=== PATIENT | male | born 1995 | race Caucasian/White ===

== ENCOUNTER → 2020-05-25 14:12 | Outpatient (CLI) | payer BC, SELFPAY ==
--- NOTE | ~2020-05-25 | MR_ITS ---
EXAMINATION: MR shoulder RT w con DATE: 05/25/2020 16:14 INDICATION: Right shoulder pain and weakness TECHNIQUE: Magnetic resonance imaging (MRI) of the right shoulder was performed following intra-marlin cular gadolinium contrast injection and without intravenous contrast. Details of the glenohumeral zakiya nt injection have been dictated separately. Sequences included axial T2-weighted FS FSE, axial T1-we ighted FS FSE, coronal oblique T1-weighted FS FSE, coronal oblique T2-weighted FSE, sagittal T2-weigh wilmer FS FSE, sagittal T1-weighted FSE, and ABER (abduction external rotation) T1-weighted FS FSE. COMPARISON: None. FINDINGS: Coracoacromial arch: The acromion undersurface is curved in morphology (type II). The coracoacromial ligament is normal. A cromioclavicular joint is normal. Bones and other: Small chronic Hill-Sachs fracture trough without underlying subarticular edema at the posterior super ior aspect of the humeral head. Marrow signal is normal with no reactive edema or pathologic marrow r eplacing process. There is approximately 12 degrees retroversion of the glenoid. Small amount of flui d in the subacromial/subdeltoid bursa consistent with mild bursitis. Rotator cuff: Mild infraspinatus tendinopathy with shallow fraying along the articular side of the tendon immediate ly adjacent to the Hill-Sachs fracture trough. The subscapularis, supraspinatus and teres minor tendo ns are normal. Normal rotator cuff muscle bulk and signal. Biceps tendon, glenoid labrum and glenohumeral cartilage: Long head of the biceps tendon is normal. There is a 2 mm deep contrast filled cleft at the base of t he 11:30-12:30 position of the superior glenoid labrum. This could represent a normal labral sulcus h owever on the coronal sequences series 6, image 10 the left appears slightly more peripheral than the chondral labral junction and with the sulcus appearing directed slightly peripherally rather than me dially raising suspicion for a SLAP tear. Remainder of the glenoid labrum is normal. Articular cartil age is normal. IMPRESSION: 1. Small Hill-Sachs fracture trough without underlying edema likely sequela of chronic anterior dislo cation injury. No corresponding Bankart injury. 2. Shallow cleft at the base of the superior glenoid labrum suspicious but not definitive for SLAP te ar with differential including normal labral sulcus. 3. Mild tendinopathy and shallow articular sided fraying at the distal infraspinatus tendon in relati vely close proximity to and potentially related to the Hill-Sachs fracture trough. Reviewed, dictated and finalized at location B. IMPRESSION: 1. Small Hill-Sachs fracture trough without underlying edema likely sequela of chronic anterior dislocation injury. No corresponding Bankart injury. 2. Shallow cleft at the base of the superior glenoid labrum suspicious but not definitive for SLAP tear with differential including normal labral sulcus. 3. Mild tendinopathy and shallow articular sided fraying at the distal infraspi natus tendon in relatively close proximity to and potentially related to the Hi ll-Sachs fracture trough.
--- NOTE | ~2020-05-25 | XR_ITS ---
EXAMINATION: XR fl inj shoulder RT - MR/CT DATE: 05/25/2020 15:45 INDICATION: Right shoulder pain and weakness TECHNIQUE: A time-out was performed to verify the patient's name, date of , and procedure to b e performed. The procedure including the risks, benefits, and alternatives was discussed with the pat ient. Risks discussed included bleeding and infection. The patient understood the risks and agreed to proceed. The skin overlying the rotator cuff interval of the right glenohumeral joint was prepped a nd draped in usual sterile fashion. Anesthetic was administered with 1% lidocaine subcutaneously. A 22 G needle was advanced under fluoroscopic guidance into the joint. Injection of 0.4 mL of Omnipaq ue 240 confirmed intra-articular position of the needle. Subsequently, injectate consisting of 12 mL of 2:1:1 mixture of sterile saline:Omnipaque 240:1% lidocaine mixed 200:1 with 529 mg/mL Multihance gadolinium contrast was injected. Washout of contrast was seen confirming intra-articular administrat ion. The needle was removed and the entry site was cleaned and dressed. There were no immediate comp lications. Fluoroscopy exposure time was 0.1 minutes. The total number of images was 85. FINDINGS: Real-time fluoroscopy demonstrates the needle in the right glenohumeral joint. Evident on t he cine images obtained with the arm in internal and external rotation is a Hill-Sachs fracture troug h at the posterolateral right humeral head. IMPRESSION: 1. Successful right glenohumeral joint injection of a dilute gadolinium contrast mixture for subseque nt MRI arthrogram which will be dictated separately. 2. Hill-Sachs fracture deformity at the posterolateral humeral head suggesting prior anterior disloca tion injury. Reviewed, dictated and finalized at location B. IMPRESSION: 1. Successful right glenohumeral joint injection of a dilute gadolinium contras t mixture for subsequent MRI arthrogram which will be dictated separately. 2. Hill-Sachs fracture deformity at the posterolateral humeral head suggesting prior anterior dislocation injury.
== END ==
PROVIDERS: PCP Family Medicine; Visit Provider Orthopaedic Surgery
DX: M25.511 Pain in right shoulder (principal); S42.291A Other displaced fracture of upper end of right humerus, initial encounter for closed fracture; M75.81 Other shoulder lesions, right shoulder
CPT/HCPCS: 23350; 73222; 77002; A9577; Q9966

== ENCOUNTER → 2020-11-14 06:46 | Outpatient (CLI) | payer BC, SELFPAY ==
[2020-11-15 01:17] LABS: SARS-CoV-2 RNA PCR Negative
== END ==
PROVIDERS: Physician Assistant; PCP Family Medicine; Visit Provider Family Medicine
DX: Z20.822 Contact with and (suspected) exposure to COVID-19 (principal); R09.89 Other specified symptoms and signs involving the circulatory and respiratory systems
CPT/HCPCS: C9803; U0003; U0005

== ENCOUNTER → 2021-02-03 14:31 | Outpatient (CLI) | payer BC, SELFPAY ==
--- NOTE | ~2021-02-03 | XR_ITS ---
XR lumbar spine 2-3V DATE: 02/03/2021 15:01 INDICATION: Back pain TECHNIQUE: Standing AP, lateral, coned lateral lumbosacral views COMPARISON: None FINDINGS: There is minimal levoscoliosis of the lumbar spine. No fracture or bone destruction or spondylolisthesis. The lumbar pedicles are intact. The lumbar and lumbosacral interspaces are well preserved. The sacroiliac joints appear normal. IMPRESSION: Mild levoscoliosis Reviewed, dictated and finalized at location A. IMPRESSION: Mild levoscoliosis
--- NOTE | ~2021-02-03 | XR_ITS ---
XR thoracic spine 2V DATE: 02/03/2021 15:01 INDICATION: Back pain TECHNIQUE: AP and lateral and swimmer's standing views COMPARISON: None FINDINGS: Mild dextroscoliosis of the mid and lower thoracic spine. No fracture or dislocation or bone destruction. The thoracic pedicles are intact. No paraspinal soft tissue thickening. Incidentally noted is an azygos lobe. IMPRESSION: Mild scoliosis Reviewed, dictated and finalized at location A. IMPRESSION: Mild scoliosis
== END ==
PROVIDERS: PCP Family Medicine; Visit Provider Physician Assistant
DX: M54.9 Dorsalgia, unspecified (principal); M41.9 Scoliosis, unspecified
CPT/HCPCS: 72070; 72100

== ENCOUNTER → 2021-12-21 11:54 | Outpatient (CLI) | payer BC, SELFPAY ==
--- NOTE | ~2021-12-21 | MR_ITS ---
EXAMINATION: XR fl inj shoulder RT - MR/CT DATE: 12/21/2021 12:43 INDICATION: Right shoulder instability TECHNIQUE: Magnetic resonance imaging (MRI) of the right shoulder was performed following intra-marlin cular gadolinium contrast injection and without intravenous contrast. Details of the glenohumeral zakiya nt injection have been dictated separately. Sequences included axial T2-weighted FS FSE, axial T1-we ighted FS FSE, coronal oblique T1-weighted FS FSE, coronal oblique T2-weighted FSE, sagittal T2-weigh wilmer FS FSE, sagittal T1-weighted FSE, and ABER (abduction external rotation) T1-weighted FS FSE. COMPARISON: 05/25/2020 FINDINGS: Coracoacromial arch: The acromion undersurface is curved in morphology (type II). The coracoacromial ligament is normal. A cromioclavicular joint is normal. Bones and other: Again seen is a small chronic Hill-Sachs fracture trough without underlying subarticular edema at the posterior superior aspect of the humeral head. Marrow signal is normal with no reactive edema or pat hologic marrow replacing process. 11 degrees retroversion of the glenoid. Small amount of fluid in th e subacromial/subdeltoid bursa without enhancement to suggest full-thickness rotator cuff perforation in this would be consistent with mild bursitis. Plaques appearance to the joint capsule with relativ teresa patulous axillary and posterior recesses of the joint space. Rotator cuff: No interval change in mild infraspinatus tendinopathy with shallow fraying along the articular side o f the distal tendon immediately adjacent to the Hill-Sachs fracture trough. The subscapularis, supras pinatus and teres minor tendons are normal. Normal rotator cuff muscle bulk and signal. Biceps tendon, glenoid labrum and glenohumeral cartilage: Long head of the biceps tendon is normal. Shallow cleft at the base of the anterosuperior glenoid lab rum. The cleft in the current study appears to smoothly curved medially which would favor a normal keating blingual sulcus over a labral tear. Remainder of the labrum is normal. Glenohumeral cartilage is norm al. IMPRESSION: 1. Unchanged small Hill-Sachs fracture trough likely sequela of a chronic anterior dislocation injury . No corresponding Bankart injury. 2. Mild tendinopathy and shallow articular sided fraying at the distal infraspinatus tendon in relati vely close proximity to have potentially related to Hill-Sachs fracture trough. 3. Mild subacromial/subdeltoid bursitis. 4. Suggestion of some glenohumeral capsular laxity with patulous axillary and posterior recess of the joint which could contribute to reported glenohumeral instability. Reviewed, dictated and finalized at location B. IMPRESSION: 1. Unchanged small Hill-Sachs fracture trough likely sequela of a chronic anter ior dislocation injury. No corresponding Bankart injury. 2. Mild tendinopathy and shallow articular sided fraying at the distal infraspi natus tendon in relatively close proximity to have potentially related to Hill- Sachs fracture trough. 3. Mild subacromial/subdeltoid bursitis. 4. Suggestion of some glenohumeral capsular laxity with patulous axillary and p osterior recess of the joint which could contribute to reported glenohumeral in stability.
== END ==
PROVIDERS: PCP Family Medicine
DX: M25.311 Other instability, right shoulder (principal); M75.51 Bursitis of right shoulder; S42.91XA Fracture of right shoulder girdle, part unspecified, initial encounter for closed fracture
CPT/HCPCS: 23350; 73222; 77002; A9577; Q9966

== ENCOUNTER 2024-06-05 14:35 | Outpatient (CLI) | payer BC, SELFPAY ==
--- NOTE | ~2024-06-05 | XR_ITS ---
Lumbosacral Spine: AP and lateral views Clinical History: Pain Findings: The normal lordotic curve is maintained. The vertebral bodies and posterior elements are i ntact. The intervertebral disc spaces are preserved. Mild facet arthropathy present. The sacroiliac joints are normally outlined. Impression: Mild facet joint arthropathy. Reviewed, dictated and finalized at location . NCIAL PLANNING ADVISOR Impression: Mild facet joint arthropathy.
--- NOTE | ~2024-06-05 | XR_ITS ---
Thoracic spine: Clinical Indication: Back pain AP and lateral views were performed. No fracture is seen. There is normal alignment of the vertebrae. The intervertebral disc spaces appe ar normal. Paravertebral soft tissues appear normal. Impression: No significant abnormalities noted. Reviewed, dictated and finalized at [facility]. [employer] SALES ENGINEER Impression: No significant abnormalities noted.
== END 2024-06-05 14:36 | disposition home or self-care (01) ==
LOC: MICIMG 14:36
PROVIDERS: PCP Family Medicine; Visit Provider Physician Assistant Medical
DX: M47.897 Other spondylosis, lumbosacral region (principal)
CPT/HCPCS: 72070; 72100

== ENCOUNTER 2024-08-07 16:15 | Outpatient (CLI) | payer BC, SELFPAY ==
--- NOTE | ~2024-08-07 | XR_ITS ---
EXAMINATION: XR_CERV2-3V_CR DATE: 08/07/2024 16:24 INDICATION: Neck pain. TECHNIQUE: 3 views of cervical spine were obtained. COMPARISON: None. FINDINGS: There is 7 degrees levocurvature of cervicothoracic spine. Vertebral body heights and inter vertebral disc heights are normal. There is severe facet joint osteoarthritis at C7-T1. No central ca nal stenosis or prevertebral soft tissue swelling. IMPRESSION: 1. Severe facet joint osteoarthritis at C7-T1. Reviewed, dictated and finalized at location A. H PAINTER
== END 2024-08-07 16:16 | disposition home or self-care (01) ==
LOC: MICIMG 16:15
PROVIDERS: PCP Family Medicine; Visit Provider Physician Assistant Medical
DX: M47.812 Spondylosis without myelopathy or radiculopathy, cervical region (principal); M47.814 Spondylosis without myelopathy or radiculopathy, thoracic region
CPT/HCPCS: 72040

== ENCOUNTER 2025-05-02 15:39 | Outpatient (CLI) | payer OTHER, SELFPAY ==
--- NOTE | ~2025-05-02 | MR_ITS ---
EXAMINATION: MR cervical spine wo con DATE: 05/02/2025 16:15 INDICATION: Cervical radiculopathy. TECHNIQUE: Magnetic resonance imaging (MRI) of the cervical spine was performed without intravenous contrast. COMPARISON: Cervical spine MRI 08/07/2024 FINDINGS: Alignment is normal. Vertebral body heights are normal. Intervertebral disc heights are normal. The spinal cord signal intensity is normal. The following disc levels are specifically discussed: C2-C3: The disc does not extend beyond the endplate margin. There is mild right uncovertebral joint osteoarthritis. There is no facet joint osteoarthritis. There is mild right neural foraminal stenosis. There is no central canal stenosis. C3-C4: There is a central protrusion. There is mild bilateral uncovertebral joint osteoarthritis. There is mild bilateral facet joint osteoarthritis. There is no neural foraminal stenosis. There is no central canal stenosis. C4-C5: The disc does not extend beyond the endplate margin. There is mild left uncovertebral joint osteoarthritis. There is mild right facet joint osteoarthritis. There is mild left neural foraminal stenosis. There is no central canal stenosis. C5-C6: There is a central protrusion. There is no uncovertebral joint osteoarthritis. There is mild right facet joint osteoarthritis. There is no neural foraminal stenosis. There is mild central canal stenosis. C6-C7: There is a left central extrusion. There is mild left uncovertebral joint osteoarthritis. There is mild bilateral facet joint osteoarthritis. There is mild left neural foraminal stenosis. There is mild central canal stenosis. C7-T1: The disc does not extend beyond the endplate margin. There is no uncovertebral joint osteoarthritis. There is moderate bilateral facet joint osteoarthritis. There is mild bilateral neural foraminal stenosis. There is no central canal stenosis. IMPRESSION: 1. Mild cervical spondylosis. Reviewed, dictated and finalized at location E.
== END 2025-05-02 15:40 | disposition home or self-care (01) ==
LOC: MICIMG 15:47
PROVIDERS: PCP Family Medicine; Visit Provider Nurse Practitioner Family
DX: M43.02 Spondylolysis, cervical region (principal)
CPT/HCPCS: 72141